=== PATIENT | male | born 1975 | race Caucasian/White ===

== ENCOUNTER 2022-09-22 12:34 | Inpatient (IN) | payer BC ==
[~2022-09-22] VITALS: Ht 177.8 cm; Wt 73.1 kg
[2022-09-22 15:19] LABS: BASOPHILS ABSOLUTE AUTO 0.01 K/mm3 (0.00-0.23); BASOPHILS PERCENT AUTO 0 % (0-2); EOSINOPHILS ABSOLUTE AUTO 0.01 K/mm3 (0.00-0.68); EOSINOPHILS PERCENT AUTO 0 % (0-6); Hematocrit 39.5 % (37.0-53.0); Hemoglobin 13.4 g/dL (13.5-17.5); IMMATURE GRAN ABSOLUTE AUTO 0.03 K/mm3 (0.00-0.10); IMMATURE GRAN PERCENT AUTO 0 % (0-1); LYMPHOCYTES ABSOLUTE AUTO 0.71 K/mm3 (0.84-5.20); LYMPHOCYTES PERCENT AUTO 6 % (21-46); MONOCYTES ABSOLUTE AUTO 0.56 K/mm3 (0.16-1.47); MONOCYTES PERCENT AUTO 5 % (4-13); Mean Corpuscular HGB 31.4 pg (26.0-34.0); Mean Corpuscular HGB Conc 33.9 g/dL (31.5-36.5); Mean Corpuscular Volume 93 fL (80-100); Mean Platelet Volume 9.4 fL (9.1-12.4); NEUTROPHILS ABSOLUTE AUTO 10.72 K/mm3 (1.96-9.15); NEUTROPHILS PERCENT AUTO 89 % (41-73); Platelet Count 207 K/mm3 (150-400); RDW Coefficient Variation 12.9 % (11.7-14.2); RDW Standard Deviation 44.1 fL (35.1-46.3); Red Blood Cell Count 4.27 M/mm3 (4.30-5.90); White Blood Cell Count 12.04 K/mm3 (4.00-11.30)
[2022-09-22 15:43] LABS: Albumin/Globulin Ratio 1.3 (0.8-1.8); Bilirubin, Total 0.5 mg/dL (0.1-1.0); Bun/Creatinine Ratio 19.8 (12.0-20.0); Calcium, Blood 8.6 mg/dL (8.5-10.1); Creatinine, Blood 0.66 mg/dL (0.60-1.20); Potassium, Blood 3.6 mmol/L (3.5-5.5)
--- NOTE | 2022-09-23 04:27 | NUR ---
SHIFT SUMMARY PATIENT NEW ADMIT FOR TRAUMA AND CHEST TUBE PLACEMENT. CHEST TUBE TO INT. SUCTION. DRESSING WITH GAUZE AND TEGADERM, WITH BLOOD TINGED DRAINAGE. LUNG SOUNDS ABSENT ON RML AND RLL. CHEST RISE IS EQUAL, AND UNLABORED. PATIENTS PAIN MANAGED WELL THIS SHIFT, HE WAS ABLE TO GET A FEW HOURS OF UNINTERUPTED REST. CONTINUOUS PULSE OX IN PLACE. SATS REMAINED ABOVE 90 FOR MOST OF THE SHIFT. @ ABOUT 0400 PATIENT SATS DROPPED BELOW 86%, PATIENT WAS SOUNDLY SLEEPIING. PATIENT PLACED ON 2 L NC, SATS BACK UP TO 96%. PATIENT TOLERATING PO INTAKE, ABLE TO VOID EASILY. VSS, CALLLIGHT IN REACH WILL REPORT OFF TO DAY RN.
--- NOTE | 2022-09-23 19:35 | NUR ---
PT IS ROOM AIR DURING THE DAY TIME, SATING ABOVE 94% ON ROOM AIR. a&O X4. USES CALL LIGHT APPROPRIATELY. CHEST TUBE IS DRAINING BLOODY DRAINAGE, SET TO WATER SEAL PER DR. DOMINGUEZ. NO AIR BUBBLES PRESENT IN CHAMBER. DRESSING ON RIGHT CHEST WALL HAS DRIED SCANT DRAINAGE WITH CLEAR COVER. PT REPORTS PAIN TO RIGHT SHOULDER, RIGHT BACK. HE VOIDS USING URINAL AT BEDSIDE. BOWEL CARE GIVEN PER EMAR. GOOD APPETITE. VISIT FROM HIS FAMILY TODAY AT BEDSIDE.
--- NOTE | 2022-09-24 06:21 | NUR ---
0621 PT TO XRAY
--- NOTE | 2022-09-24 06:22 | NUR ---
SHIFT SUMMARY PT ADMITTED FOR PNEUMO&HEMOTHORAX WITH CHEST TUBE ON R SIDE CHEST WALL. PT REPORT MINIMAL PAIN WITH INTERMITTENT SHARP MUSCLE SPASM ON R SIDE CHEST INTERMITTENTLY. CHEST TUBE OUTPUT OF 100ML T/O SHIFT, APPEARS SS DRAINAGE. PAIN MANAGED WITH OXY, TYLENOL, DILAUDID AND TORADOL. PT HAD A MILD FEVER LAST NIGHT, IMPROVED THIS MORNING. PT ON 2L O2 AT NIGHT FOR COMFORT. SATS ON ROOMAIR WHEN ASLEEP AT LOW 90'S; MID 90'S ON ROOM AIR WHEN AWAKE. DENIES SOB. PT ON BEDREST. TOLERATING PO INTAKE. DENIES N/V. USE URINAL INDEPENDENTLY. VOIDING. CALL LIGHT WITHIN REACH. WILL PROVIDE REPORT TO ONCOMING NURSE.
[2022-09-24] MEDS ORDERED: OXAYDO5 M9 PO (16:06)
[2022-09-24] MEDS ORDERED: Robaxin750 MG PO (16:07)
[2022-09-24] MEDS ORDERED: DOCU100 PO (16:17)
[2022-09-24] MEDS ORDERED: IBUP600 PO (16:17)
[2022-09-24] MEDS ORDERED: Acetaminophen650 M1 PO (16:18)
--- NOTE | 2022-09-24 16:45 | NUR ---
DISCHARGE SUMMARY PT A&OX4, VSS/RA, TRENT PO, VOIDING WELL, AMB HALLWAY/TO BRP AND UP TO CHAIR, INCENTIVE SPIROMETER AND TCDB T/O SHIFT, PAIN MANAGED WITH ORAL MEDS, DRESSING CHANGED ON CECILE, DRESSING CHANGED BY SURGEON ON CHEST TUBE REMOVAL AREA PRIOR TO DC, SUPPLIES FOR DRESSING CHANGES PROVIDED. IV DC'D. DC INS PROVIDED. PT REP UNDERSTANDING THOSE INSTRUCTIONS INCLUDING OK TO SHOWER SATURDAY, DRESSING CHANGES, PAIN MANAGEMENT, SHORT FREQUENT AMB/OOB/CHAIR, I.S. & TCDB. AMB OFF FLOOR WITH ALL PERSONAL POSSESSIONS INCLUDING DC PACKET AND 2 SCRIPTS, DRESSING CHANGES.
== END 2022-09-24 17:05 | disposition home or self-care (01) | DRG 200 ==
LOC: ER 12:34 → SURS 16:52
PROVIDERS: Student in an Organized Health Care Education/Training Program; ADMIT Surgery
PROC: 0HQBXZZ Repair Right Upper Arm Skin, External Approach (ICD-10-PCS; principal; 2022-09-22)
PROC: 0W9930Z Drainage of Right Pleural Cavity with Drainage Device, Percutaneous Approach (ICD-10-PCS; 2022-09-22)
DX: S27.0XXA Traumatic pneumothorax, initial encounter (principal); S22.41XA Multiple fractures of ribs, right side, initial encounter for closed fracture; S41.111A Laceration without foreign body of right upper arm, initial encounter; J43.8 Other emphysema; Z28.21 Immunization not carried out because of patient refusal; Z88.0 Allergy status to penicillin; Z79.899 Other long term (current) drug therapy; V86.06XA Driver of dirt bike or motor/cross bike injured in traffic accident, initial encounter
CPT/HCPCS: 12002; 32551; 71045; 71046; 71260; 74177; 80053; 85025; 86850; 86900; 86901; 94762; 96374-59; 96375-59; 96376-59; 99285-25; A9270; J1170; J1650; J1885; J2405; J3010; J7120; Q9967